=== PATIENT | female | born 1995 | race Hispanic/Latino ===

== ENCOUNTER 2022-04-19 14:57 | Emergency (ER) | payer OTHER ==
[~2022-04-19] VITALS: Ht 154.9 cm; Wt 85.3 kg
[~2022-04-19 14:57] MED LIST: CIPR-279 PO; HYDR-3830 PO; SERT25TA PO
[2022-04-19] MEDS ORDERED: KETOROLAC 60 MG VIAL (30MG/ML) IM STA (15:46)
[2022-04-19 16:07] LABS: APPEARANCE,URINE CLEAR (CLEAR); BILIRUBIN,URINE NEGATIVE (NEGATIVE); COLOR,URINE COLORLESS (YELLOW); GLUCOSE, URINE (UA) NEGATIVE (NEGATIVE); KETONES,URINE NEGATIVE (NEGATIVE); LEUKOCYTE ESTERASE ,URINE NEGATIVE Leu/uL (NEGATIVE); NITRATE,URINE NEGATIVE (NEGATIVE); OCCULT BLOOD,URINE LARGE (NEGATIVE); PROTEIN,URINE NEGATIVE (NEGATIVE); UROBILINOGEN,URINE 0.2 mg/dL (0.2-1.0)
[2022-04-19 16:15] LABS: RBC,URINE 0-1 /HPF (0-1); SQUAMOUS EPITHELIAL CELL,UR RARE /HPF (0-2); WBC,URINE 0-1 /HPF (0-1)
[2022-04-19] MEDS ORDERED: NAPR375T6 PO (16:35)
[2022-04-19 17:18] VITALS: BP 112/72
== END 2022-04-19 17:25 | disposition home or self-care (01) ==
LOC: EDH 14:57
DX: N94.6 Dysmenorrhea, unspecified (principal); Z90.49 Acquired absence of other specified parts of digestive tract; Z98.890 Other specified postprocedural states; Z79.899 Other long term (current) drug therapy
CPT/HCPCS: 99284; 76857; 81001; 81025; 96372; J1885

== ENCOUNTER 2022-07-27 20:46 | Emergency (ER) | payer OTHER ==
[~2022-07-27] VITALS: Ht 154.9 cm; Wt 78.9 kg
[~2022-07-27 20:46] MED LIST changes: +NAPR375T6 PO
[2022-07-27 22:52] VITALS: BP 147/91
[2022-07-27 22:53] LABS: APPEARANCE,URINE CLEAR (CLEAR); BILIRUBIN,URINE NEGATIVE (NEGATIVE); COLOR,URINE LIGHT-YELLOW (YELLOW); GLUCOSE, URINE (UA) NEGATIVE (NEGATIVE); KETONES,URINE NEGATIVE (NEGATIVE); LEUKOCYTE ESTERASE ,URINE NEGATIVE Leu/uL (NEGATIVE); NITRATE,URINE NEGATIVE (NEGATIVE); OCCULT BLOOD,URINE NEGATIVE (NEGATIVE); PH,URINE 6.5 (5.0-8.0); PROTEIN,URINE NEGATIVE (NEGATIVE); UROBILINOGEN,URINE 0.2 mg/dL (0.2-1.0)
[2022-07-27] MEDS ORDERED: HYDR-3421 PO (23:27)
== END 2022-07-27 23:33 | disposition home or self-care (01) ==
LOC: EDH 20:46
DX: F41.9 Anxiety disorder, unspecified (principal); R00.2 Palpitations; R07.89 Other chest pain; Z79.1 Long term (current) use of non-steroidal anti-inflammatories (NSAID); Z79.899 Other long term (current) drug therapy; Z90.49 Acquired absence of other specified parts of digestive tract
CPT/HCPCS: 81003; 81025; 93005

== ENCOUNTER → 2022-10-25 | Emergency (ER) | payer MEDICAID ==
[~2022-10-25] VITALS: Ht 154.9 cm; Wt 93.0 kg
[~2022-10-25] MED LIST changes: +HYDR-3421 PO
== END ==
LOC: EDH 20:09
DX: R10.9 Unspecified abdominal pain (principal); Z53.21 Procedure and treatment not carried out due to patient leaving prior to being seen by health care provider
CPT/HCPCS: 99281